=== PATIENT | female | born 1950 | race American Indian/Alaskan Native ===

== ENCOUNTER 2016-10-08 17:24 | Emergency (ER) | payer MEDICARE ==
--- NOTE | 2016-10-08 18:53 | Cat Scan Report ---
FINAL REPORT EXAM: CT HEAD/BRAIN WO CON HISTORY: neuro deficits TECHNIQUE: CT head without contrast PRIORS: None. FINDINGS: No acute intra-axial or extra-axial hemorrhage is identified. There is no evidence of midline shift or mass effect. The ventricles and sulci are within normal limits. Herrera-white matter differentiation is intact. No acute parenchymal abnormalities seen. Bony calvarium is grossly intact. Visualized portions of the mastoids and paranasal sinuses are unremarkable. IMPRESSION: Negative CT head
[2016-10-08 19:06] LABS: Basophils % (Auto) 0.3 % (0.0-1.8); Eosinophils % (Auto) 7.5 % (0.0-4.3); Hematocrit 34.8 % (30.3-42.9); Hemoglobin 10.8 gm/dl (10.1-14.3); Mean Corpuscular HGB Conc 31 % (30-34); Mean Corpuscular Hemoglobin 27 pg (28-32); Mean Corpuscular Volume 88 fl (79-97); Platelet Count 223 K/mm3 (140-440); Red Blood Count 3.97 M/mm3 (3.65-5.03); Red Cell Distribution Width 17.1 % (13.2-15.2); White Blood Count 8.4 K/mm3 (4.5-11.0)
[2016-10-08 19:15] LABS: INR 1.05 (0.87-1.13)
[2016-10-08 19:16] LABS: Partial Thromboplastin Time 29.6 Sec. (24.2-36.6)
[2016-10-08 19:35] LABS: Anion Gap 19 mmol/L; Blood Urea Nitrogen 18 mg/dL (7-17); Calcium 9.5 mg/dL (8.4-10.2); Carbon Dioxide 23 mmol/L (22-30); Chloride 103.3 mmol/L (98-107); Glucose 98 mg/dL (65-100); Potassium 3.8 mmol/L (3.6-5.0); Sodium 141 mmol/L (137-145)
[2016-10-08 22:52] VITALS: BP 148/94
--- NOTE | 2016-10-11 01:01 | ED Elopement Review ---
ED Pt Elopement review - Results review Lab results: Laboratory Tests 10/08/16 10/08/16 10/08/16 17:52 18:29 18:29 WBC 8.4 RBC 3.97 Hgb 10.8 Hct 34.8 MCV 88 MCH 27 L MCHC 31 RDW 17.1 H Plt Count 223 Lymph % (Auto) 35.9 H Hancock % (Auto) 6.2 Eos % (Auto) 7.5 H Baso % (Auto) 0.3 Lymph # 3.0 Hancock # 0.5 Eos # 0.6 H Baso # 0.0 Seg Neutrophils % 50.1 Seg Neutrophils # 4.2 PT 13.6 INR 1.05 APTT 29.6 Thrombin Time Sodium Potassium Chloride Carbon Dioxide Anion Gap BUN Creatinine Estimated GFR BUN/Creatinine Ratio Glucose POC Glucose 119 H Calcium Troponin T 10/08/16 10/08/16 18:29 18:29 WBC RBC Hgb Hct MCV MCH MCHC RDW Plt Count Lymph % (Auto) Hancock % (Auto) Eos % (Auto) Baso % (Auto) Lymph # Hancock # Eos # Baso # Seg Neutrophils % Seg Neutrophils # PT INR APTT Thrombin Time 19.9 H Sodium 141 Potassium 3.8 Chloride 103.3 Carbon Dioxide 23 Anion Gap 19 BUN 18 H Creatinine 1.0 Estimated GFR > 60 BUN/Creatinine Ratio 18.00 Glucose 98 POC Glucose Calcium 9.5 Troponin T < 0.010 - Call Back decision Pt Call Back Decision: Pt to F/U with PMD (will need further evaluation including MRI, may return here if no pmd and/or continued symptoms)
== END 2016-10-08 22:58 | disposition left against medical advice (07) ==
LOC: ED 17:24
DX: H53.8 Other visual disturbances (principal); R47.81 Slurred speech; Z53.21 Procedure and treatment not carried out due to patient leaving prior to being seen by health care provider
CPT/HCPCS: 36415; 70450; 80048; 82962; 84484; 85025; 85610; 85670; 85730; 93005; 93010

== ENCOUNTER 2017-02-22 05:55 | Day surgery (SDC) | payer MEDICARE ==
[2017-02-22] MEDS ORDERED: NACL 0.9% 1000 ML 1,000 ML IV SCH (06:00)
[2017-02-22] MEDS ORDERED: PEPCID PO NR ×2 (06:00→08:00)
[2017-02-22] MEDS ORDERED: NACL BACTERIOSTATIC INFILTRATI ONE (06:27)
[2017-02-22] MEDS ORDERED: XYLOCAINE MPF 2% ONE (07:21)
[2017-02-22] MEDS ORDERED: DIPRIVAN 10 MG/ML IV ONE (07:21)
[2017-02-22] MEDS ORDERED: SUBLIMAZE ONE (07:22)
--- NOTE | 2017-02-22 07:23 | Anesthesia Day of Surgery ---
Anesthesia Day of Surgery - Day of Surgery Patient Examined: Yes Patient H&P Reviewed: Yes Patient is NPO: Yes
--- NOTE | 2017-02-22 07:24 | Short Stay Summary ---
Short Stay Documentation Date of service: 02/22/17 Narrative H&P: 66y/o with postmenopausal bleeding. An endometrial biopsy was performed with findings of an endometrial polyp. She denies any significant pain or discomfort. - History Principal diagnosis: Postmenopausal bleeding Past Medical History: other (asthma; rheumatoid arthritis; ) Past Surgical History: Other (tubal ligation; hysteroscopy) Social history: - Allergies and Medications Current Medications: Allergies meloxicam Allergy (Verified 02/16/17 15:16) Itching Home Medications Medication Instructions Recorded Confirmed Last Taken Type Valsartan [Diovan] 160 mg PO QDAY 10/21/14 02/16/17 1 Day Ago History oxyCODONE /ACETAMINOPHEN [Percocet 1 tab PO Q6HR PRN #20 tablet 10/21/14 Unknown Rx 5/325] Allopurinol [Zyloprim] 300 mg PO QDAY 02/16/17 02/16/17 Unknown History Ferrous Sulfate [Feosol] 325 mg PO BID 02/16/17 02/16/17 Unknown History Active Medications Famotidine (Pepcid) 20 mg PO PREOP NR Stop: 02/22/17 21:00 Last Admin: 02/22/17 06:44 Dose: 20 mg Sodium Chloride (Nacl 0.9% 1000 Ml) 1,000 mls @ 75 mls/hr IV DIRECT GERARDO Last Admin: 02/22/17 06:55 Dose: 75 mls/hr - Physical exam General appearance: no acute distress Integumentary: no rash HEENT: Atraumatic Lungs: Clear to auscultation Breasts: deferred Heart: Regular rate Gastrointestinal: normal Female Genitourinary: deferred Rectal Exam: deferred - Brief post op/procedure progress note Date of procedure: 02/22/17 Pre-op diagnosis: postmenopausal bleeding; endometrial polyp Post-op diagnosis: same Procedure: Hysteroscopy Endometrial polypectomy Dilatation and curettage Anesthesia: CHAVEZ Surgeon: ADY BROWN Estimated blood loss: minimal Pathology: list (endometrial polyp; endometrial curettings) Specimen disposition: to lab Condition: stable - Hospital course Hospital course: The patient was admitted the day of surgery and underwent a dilatation and curettage and hysteroscopy. Please see operative note for details of surgery. Postoperative course was uneventful. - Disposition Condition at discharge: Good Disposition: [id number] TO HOME OR SELFCARE Short Stay Discharge Plan Activity: no restrictions Diet: regular Additional Instructions: Follow-up in [address] Brown Prescriptions: Ibuprofen [Motrin] 800 mg PO Q8HR PRN #60 tablet PRN Reason: Pain oxyCODONE /ACETAMINOPHEN [Percocet 5/325] 1 tab PO Q6HR PRN #30 tablet PRN Reason: Pain
--- NOTE | 2017-02-22 07:26 | Anesthesia Consultation ---
Anesthesia Consult and Med Hx Date of service: 02/22/17 - Airway Anesthetic Teeth Evaluation: Dentures (upper. missing multiple lower teeth) ROM Head & Neck: Adequate Mental/Hyoid Distance: Adequate Mallampati Class: Class III Intubation Access Assessment: Probably Good - Pulmonary Exam CTA: Yes - Cardiac Exam Cardiac Exam: RRR - Pre-Operative Health Status ASA Pre-Surgery Classification: ASA2 Proposed Anesthetic Plan: General - Pulmonary Hx Asthma: Yes ("not treated in a while") - Cardiovascular System Hx Hypertension: Yes (x 2 yrs) - Central Nervous System Hx Psychiatric Problems: No - Other Systems Hx Alcohol Use: Yes (occas) Hx Cancer: No - Additional Comments Anesthesia Medical History Comments: PONV, OA in legs, s/p BTL last [employer] 2009.
[2017-02-22] MEDS ORDERED: TRANSDERM-SCOP TD ONE (07:29)
[2017-02-22] MEDS ORDERED: ZOFRAN ONE (07:50)
[2017-02-22] MEDS ORDERED: LACTATED RINGERS 1,000 ML IV SCH (08:00)
[2017-02-22] MEDS ORDERED: NACL 0.9% IR ONE (08:00)
[2017-02-22] MEDS ORDERED: ZOFRAN IV PRN (08:00)
--- NOTE | 2017-02-22 08:24 | Operative Report ---
Operative Report Operative Report: Date of procedure: 02/22/2017 Pre-operative diagnosis: Postmenopausal bleeding; endometrial polyp Post-operative diagnosis: Same as above Procedure name(s): Hysteroscopy; endometrial polypectomy; dilatation and curettage Surgeon: Maribell Garcia M.D. Agricultural Equipment Mechanic: None Anesthesia: General endotracheal anesthesia Findings endometrial polyps Pathology: Endometrial curettings; endometrial polyps Indication: 66-year-old with a history of postmenopausal bleeding. Endometrial biopsy in the office revealed evidence of an endometrial polyp. Procedure The patient was taken to the operating room and given general tracheal anesthesia without complication. The patient was prepped and draped in a normal sterile fashion. A bivalve speculum was placed in the patient's vagina single-tooth tenaculums placed on the anterior lip of the cervix. The cervical os was dilated with graduated dilators. A uterine sound was inserted. The hysteroscope was then placed. Insufflation of the uterine cavity was performed with normal saline. Gen. survey of the uterine cavity revealed 3 endometrial polyps. The hysteroscope was then removed. A grasper was inserted through the hysteroscope. The endometrial polyp was grasped with the forceps. Unable to adequately remove the polyps with the small forceps. The hysteroscope was then removed and a polyp grasper was inserted through the dilated cervical os. Several passes were performed with the polyp forceps in order to remove the endometrial tissue. A sharp curettage of endometrial surface was performed. The remainder of the vaginal instruments were then removed atraumatically. The patient was then successfully extubated taken to the recovery room. All sponge laps and needle counts were correct 2.
[2017-02-22] MEDS: DILAUDID IV PRN ×2 (08:40→09:02)
[2017-02-22] MEDS ORDERED: ZOFRAN IV ONE (10:06)
--- NOTE | 2017-02-22 10:30 | Post Anesthesia Evaluation ---
- Post Anesthesia Evaluation Patient Participated: Yes Airway Patent: Yes Stable Respiratory Function: Yes Nausea/Vomiting: No Temp > 96.8F: Yes Pain Manageable: Yes Adequeate Hydration: Yes Anesthesia Complications: No Block Receding Appropriately: Not Applicable Patient on Ventilator: No
[2017-02-22 10:37] VITALS: BP 137/75
== END 2017-02-22 10:48 | disposition home or self-care (01) ==
LOC: OR 05:55
PROVIDERS: ATTEND Obstetrics & Gynecology
DX: N84.0 Polyp of corpus uteri (principal); D25.0 Submucous leiomyoma of uterus; J45.909 Unspecified asthma, uncomplicated; I10 Essential (primary) hypertension; M19.90 Unspecified osteoarthritis, unspecified site; M06.9 Rheumatoid arthritis, unspecified; E66.01 Morbid (severe) obesity due to excess calories; Z68.42 Body mass index [BMI] 45.0-49.9, adult; Z72.89 Other problems related to lifestyle; Z98.51 Tubal ligation status; Z98.890 Other specified postprocedural states; Z88.8 Allergy status to other drugs, medicaments and biological substances; Z79.899 Other long term (current) drug therapy
CPT/HCPCS: 58558; 88305; A4217; J1170; J2405; J2704; J3010; J7030